=== PATIENT | female | born 1990 | race Two or more races ===

== ENCOUNTER 2024-06-07 04:19 | Emergency (ER) | payer MEDICAID, SELFPAY ==
[2024-06-07 04:19] VITALS: BMI 33.3
[2024-06-07 04:29] VITALS: BP 134/92; PULSE 84; RESP 20; TEMP 36.8; O2SAT 98
[2024-06-07] MEDS: CYCLObenzaPRINE 5 MG TABLET PO (04:58)
[2024-06-07] MEDS: KETOROLAC INJ 60 MG/2 ML VIAL IM (04:59)
--- NOTE | 2024-06-07 05:47 | EDNOTE_ITS ---
ED Back Injury Pain RME/HPI General Chief Complaint: Back Pain/Injury Stated Complaint: LOWER BACK PAIN, S/P GLF X 1 MON. AGO Time Seen by Provider: 06/07/24 04:37 Arrival date/time: 06/07/24 04:19 33F with no significant PMH presents to ED with several days of low back pain. Pain started after slip and fall about 1 month ago. Patient denies dysuria/hematuria, paresthesia, and bowel/bladder incontinence. Limitations: no limitations Related Data Home Medications ?Medication ?Instructions ?Recorded ?Confirmed prenat.vits,randell,[id number] 1 tab PO QDAY 08/15/21 08/23/21 Previous Rx's ?Medication ?Instructions ?Recorded nifedipine 60 mg tablet,extended 60 mg PO QDAY #30 tab s 08/17/21 release 24 hr (Procardia XL) doxycycline hyclate 100 mg capsule 100 mg PO BID #20 c aps 06/14/23 methylprednisolone 4 mg tablets in 4 mg PO QAM #21 tab s 06/14/23 a dose pack (Medrol (Navjot)) Allergies Allergy/AdvReac Type Severity Reaction Status Date / Time No Known Allergies Allergy Unknown Verified 06/07/24 04:22 Review of Systems Review of Systems Systems Reviewed: All systems reviewed, normal except as documented Constitutional Constitutional: Reports system reviewed and no additional complaints, except as documented, Denies fever(s) and Denies headache(s) ENT Ears, Nose, Mouth, and Throat: Denies disequilibrium and Denies headache(s) Cardiovascular Cardiovascular: Reports system reviewed and no additional complaints, except as documented, Denies chest pain and Denies dyspnea Respiratory Respiratory: Reports system reviewed and no additional complaints, except as documented, Denies cough and Denies dyspnea Gastrointestinal Gastrointestinal: Reports system reviewed and no additional complaints, except as documented, Denies abdominal pain, Denies nausea and Denies vomiting Musculoskeletal Musculoskeletal: Reports as per HPI and Reports back pain Neurologic Neurologic: Reports system reviewed and no additional complaints, except as documented, Denies confusion, Denies disequilibrium and Denies headache(s) Psychiatric Psychiatric: Denies confusion Past Medical History Past Medical History CARDIAC: Negative Cardiac Disorders or Congestive Heart Failure RESPIRATORY: Negative Chronic Obstructive Pulmonary Disease (COPD) or Asthma GENITOURINARY: Negative Renal Disease ENDOCRINE: Negative Diabetes Mellitus Type 1 or Diabetes Mellitus Type 2 HEMATOLOGIC: Negative Sickle Cell Disease Social History SMOKING STATUS: Never smoker ED Exam General Limitations: Present no limitations General appearance: Present alert and in no apparent distress Head Head exam: Present atraumatic Eye Eye exam: Present normal appearance, PERRL and EOMI ENT ENT exam: Present normal exam, normal oropharynx and mucous membranes moist Neck Neck exam: Present normal inspection, full ROM and trachea midline Chest Chest inspection: Present normal inspection and symmetric chest wall rise Respiratory Respiratory exam: Present normal lung sounds bilaterally Cardiovascular Cardiovascular exam: Present regular rate, normal rhythm and normal heart sounds Abdominal Exam Abdominal exam: Present soft and normal bowel sounds Extremities Exam Extremities exam: Present normal inspection and full ROM Back Exam Back exam: Present normal inspection and full ROM Neurological Exam Neurological exam: Present alert, oriented X3 and CN II-XII intact Psychiatric Psychiatric exam: Present normal affect and normal mood Skin Skin exam: Present warm, dry, intact and normal color Course Quality Measures none Orders Category Date Time Status CYCLObenzaPRINE [Flexeril] Med 06/07/24 04:38 Discontinued 5 mg PO X1 ONE Ketorolac Inj [Toradol Inj] Med 06/07/24 04:38 Discontinued 60 mg IM X1 ONE Vital Signs Vital signs: Vital Signs Temperature 98.2 F 06/07/24 04:29 Pulse Rate 84 06/07/24 04:29 Respiratory Rate 20 06/07/24 04:29 Blood Pressure 134/92 H 06/07/24 04:29 Pulse Oximetry (%) 98 06/07/24 04:29 Oxygen Delivery Method Room Air 06/07/24 04:29 O2 at 98% on RA and WNLs Back Pain / Injury MDM Narrative MDM Narrative:: 33F with no significant PMH presents to ED with several days of low back pain. Pain started after slip and fall about 1 month ago. Patient denies dysuria/hematuria, paresthesia, and bowel/bladder incontinence. Physical exam reveals no midline back tenderness. ROM is intact, though painful. Gait normal. Patient is afebrile, alert, but appears to be in pain. Meds and career placement services counselor given. Patient data External records reviewed:: [facility] previous records Clinical information provided by:: patient Social determinants that could affect healthcare access:: none Patient has the following chronic illnesses:: none How is presenting disease/condition affected by chronic disease/condition?: no chronic disease Evaluation data The following diagnostics were reviewed and interpreted by me:: other (specify) (none) Lab and/or radiology exams considered but not ordered:: not ordered Interpretation Summary: n/a Medications / Prescriptions Medications or Prescriptions considered but not ordered:: ordered Medication administrations:: Medication Administration History Discontinued Medications Cyclobenzaprine HCl (Cyclobenzaprine 5 Mg Tablet) 5 mg PO X1 ONE Stop: 06/07/24 04:39 Last Admin: 06/07/24 04:58 Dose: 5 mg Documented By: CVL Ketorolac Tromethamine (Ketorolac Inj 60 Mg/2 Ml Vial) 60 mg IM X1 ONE Stop: 06/07/24 04:39 Last Admin: 06/07/24 04:59 Dose: 60 mg Documented By: CVL Comments: pain down to 06/05 pt discharge above Consultations Consultation(s) initiated? (list below): No Diagnosis Differential diagnosis back pain/injury: lumbar radiculopathy, sciatica, strain of lumbar region, renal colic, pyelonephritis, thoracic back pain, AAA, discitis and other (back pain) Most likely diagnosis given after review of the tests above:: back pain Admission Indicated Admission indicated?: not indicated Admission Request Was there a request for admission?: No Disposition Plan Disposition Plan: Discharge Discharge Attestation Discharge Attestation: The patient and all family members were given an opportunity to ask questions and understood the discharge instructions. Discharge instructions specifically effects, indications for sooner follow up or return to the emergency department, and the expected course of current diagnosis. Patient condition: Stable Discharge Plan Plan Patient Disposition: HOME (Self Care) Disposition Comment: Stable Prescriptions/Referrals Prescriptions/Med Rec: No Action nifedipine [Procardia XL] 60 mg tablet extended release 24 hr 60 mg PO QDAY Qty: 30 0RF Vitamin Tablet 1 tab PO QDAY doxycycline hyclate 100 mg capsule 100 mg PO BID Qty: 20 0RF methylprednisolone [Medrol (Navjot)] 4 mg tablets,dose pack 4 mg PO QAM Qty: 21 0RF Rx Instructions: follow dose pack instructions Problem List Clinical Impression: Back pain Patient/Caregiver Discharge Instructions Education Materials: ED Back Pain (Acute or Chronic) Additional Instructions: Please follow-up with PCP within 24-48 hours and return immediately if symptoms worsen. If problem persists, recommend outpatient PT and/or MRI follow-up. In the meantime, rest, use ice/heat, and/or compression. Print Language: Latvian Stand Alone Forms: Patient Portal Info Letter PA/[employer] Supervising Physician PA/[employer] Supervising Physician: Dr. Hawkins
== END 2024-06-07 05:07 | disposition home or self-care (01) ==
LOC: SERX 06:23
PROVIDERS: Emergency Provider Emergency Medicine
DX: M54.50 Low back pain, unspecified (principal)
CPT/HCPCS: 96372; 99283; J1885; A9270

== ENCOUNTER 2025-02-08 17:34 | Emergency (ER) | payer MEDICAID, SELFPAY ==
[2025-02-08 18:25] VITALS: BP 138/85; PULSE 76; RESP 18; TEMP 36.9; O2SAT 98
--- NOTE | 2025-02-08 18:29 | XR_ITS ---
EXAMINATION: PA chest single view TECHNIQUE: Upright PA chest single view Date and time: February 08, 2025, 1908 hours, comparison June 14, 2023 INDICATIONS: Chest pain beginning 2 days ago. FINDINGS: Normal heart size Lungs are clear. Osseous structures are intact IMPRESSION: No active disease
[2025-02-08 19:03] LABS: Collection Type, Urine Voided
[2025-02-08 19:14] LABS: Bilirubin,Urine Negative (Negative); Blood,Urine Negative (Negative); Clarity,Urine Clear (Clear/Hazy); Color,Urine Colorless (Lt Yel-Yel); Culture Indicated,Urine Not Indicated; Glucose, Urine Negative (Negative); Ketones,Urine Negative (Negative); Leukocyte Esterase,Urine Negative (Negative); Nitrite,Urine Negative (Negative); PH,Urine 7.0 (5.0-7.0); Protein,Urine Negative (Neg - Trace); RBC,Urine 1 /hpf (0-3); Specific Gravity,Urine 1.007 (1.001-1.035); Squamous Epithelial Cell,Urine 3 /hpf (0-5); Urobilinogen,Urine Negative mg/dL (0.0-1.0); WBC,Urine 1 /hpf (0-5)
[2025-02-08 19:25] LABS: HCG Qualitative,Urine Negative
[2025-02-08 19:26] LABS: Alanine Aminotransferase 29 U/L (10-49); Albumin, Serum 4.6 gm/dL (3.5-5.0); Albumin/Globulin Ratio 2.1 (1.2-2.2); Alkaline Phosphatase 68 U/L (46-116); Anion Gap 6 (7-16); Aspartate Amino Transferase 22 U/L (0-34); BUN/Creatinine Ratio 11 Ratio (12-20); Bilirubin,Total 0.2 mg/dL (0.3-1.2); Blood Urea Nitrogen 9 mg/dL (9-23); Calcium 9.3 mg/dL (8.3-10.6); Calcium (Corrected) 9.3 mg/dL (8.5-10.1); Carbon Dioxide 30.2 mMol/L (20.0-31.0); Chloride 107 mMol/L (98-107); Creatinine (Component) 0.8 mg/dL (0.6-1.3); Estimated Creatinine Clearance 113.7 mL/min (>60); Globulin 2.2 gm/dL (2.3-3.5); Glucose 106 mg/dL (74-106); Osmolality,Calculated 283 (275-295); Potassium 4.3 mMol/L (3.4-5.1); Sodium 143 mMol/L (136-145); Total Protein 6.8 gm/dL (5.7-8.2); eGFR > 60 See Note
[2025-02-08 19:28] LABS: Basophils # (Auto) 0.1 Thou/mm3 (0.0-0.2); Basophils % (Auto) 1 % (0-2.5); Eosinophils # (Auto) 0.2 Thou/mm3 (0.0-0.5); Eosinophils % (Auto) 2 % (0-10); Hematocrit 37.9 % (36.0-46.0); Hemoglobin 12.5 g/dL (12.0-16.0); Immature Granulocytes Auto 0.05 Thou/mm3 (0.00-0.00); Lymphocytes # (Auto) 2.8 Thou/mm3 (1.0-4.8); Lymphocytes % (Auto) 29 % (10-50); Mean Corpuscular HGB Conc 33.0 g/dl (31.0-37.0); Mean Corpuscular Hemoglobin 29.0 pg (25.0-35.0); Mean Corpuscular Volume 88 fL (80-100); Monocytes # (Auto) 0.9 Thou/mm3 (0.0-0.8); Monocytes % (Auto) 9 % (0-12); Neutrophils # (Auto) 5.6 Thou/mm3 (1.8-7.7); Neutrophils % (Auto) 59 % (37-80); Nucleated Red Blood Cell # 0.00 Thou/mm3 (0.00-0.00); Nucleated Red Blood Cell % 0 /100 WBC (0); Platelet Count 205 Thou/mm3 (140-440); RDW Standard Deviation 41.7 fL (36.4-46.3); Red Blood Count 4.31 Miln/mm3 (4.00-5.20); White Blood Count 9.6 Thou/mm3 (3.6-11.0)
--- NOTE | 2025-02-08 19:58 | PD.EDURI ---
Upper Respiratory Inf. RME/HPI General Chief Complaint: Upper Respiratory Infection Stated Complaint: EXCESSIVE SALIVA Time Seen by Provider: 02/08/25 18:29 Arrival date/time: 02/08/25 17:34 RME / HPI RME / HPI Narrative: 34-year-old female presents to the ER complaining of cough with white productive sputum along with increased saliva and thirst dry for the past 6 days. Denies fever, sore throat, dysphagia, congestion, earache, nausea, vomiting, shortness of breath, chest pain. Related Data Home Medications ?Medication ?Instructions ?Recorded ?Confirmed prenat.vits,randell,[id number] 1 tab PO QDAY 08/15/21 08/23/21 Previous Rx's ?Medication ?Instructions ?Recorded nifedipine 60 mg tablet,extended 60 mg PO QDAY #30 tabs 08/17/21 release 24 hr (Procardia XL) doxycycline hyclate 100 mg capsule 100 mg PO BID #20 caps 06/14/23 methylprednisolone 4 mg tablets in 4 mg PO QAM #21 tabs 06/14/23 a dose pack (Medrol (Navjot)) Allergies Allergy/AdvReac Type Severity Reaction Status Date / Time No Known Allergies Allergy Unknown Verified 02/08/25 17:37 ED Exam Narrative Physical exam: Constitutional: Patient alert and oriented. Well appearing. No acute distress. Not toxic appearing. Head: Normocephalic, atraumatic. Eyes: Periorbital regions bilaterally normal to inspection. Conjunctiva clear bilaterally. Sclera anicteric bilaterally. Pupils equal, round, reactive to light bilaterally. Extraocular movements intact bilaterally. Ears: External ears normal to inspection bilaterally. No mastoid tenderness bilaterally. EAC without edema or exudate bilaterally. TMs without erythema or bulging. Mouth/Throat: Mucous membranes moist. No stridor or muffled voice. Uvula midline. Rise and fall of soft palate normal. No tonsillar edema or exudate. No peritonsillar fullness. No trismus. Handling secretions without difficulty. Airway widely patent. Neck: Supple. Trachea midline. No JVD. No nuchal rigidity. No midline tenderness or step-offs. Normal range of motion. Respiratory: Normal effort. No accessory muscle use or respiratory distress. Lungs clear to auscultation bilaterally without rhonchi, wheezes, or crackles. Cardiovascular: RRR. Normal S1/S2. No murmurs or rubs. Radial pulses intact bilaterally. Abdomen: Soft. Non-distended. Non-tender throughout. No pulsatile mass. No guarding or rebound. Negative Mendez?s sign. Negative McBurney?s point tenderness. Negative Rovsing?s. Back: No midline tenderness or step-offs. No CVA tenderness to palpation bilaterally. Upper Extremities: No gross deformities. Lower Extremities: No gross deformities. No edema or calf tenderness. Neuro: Speech normal. No gross motor or sensory deficits to upper or lower extremities bilaterally. GCS 15. CN II?XII grossly intact. Skin: Warm, dry, normal color. Psych: Normal affect. Cooperative. Normal insight. Course Quality Measures none Orders Category Date Time Status XR chest 1V Stat Exams 02/08/25 18:29 Completed CBC Stat Lab 02/08/25 18:45 Completed CMP [Comprehensive Metabolic Panel] Stat Lab 02/08/25 18:45 Completed HCG Qualitative,Urine Stat Lab 02/08/25 18:53 Completed Urinalysis, C/S if Indicated Stat Lab 02/08/25 18:53 Completed Vital Signs Vital signs: Vital Signs Temperature 98.4 F 02/08/25 18:25 Pulse Rate 76 02/08/25 18:25 Respiratory Rate 18 02/08/25 18:25 Blood Pressure 138/85 H 02/08/25 18:25 Pulse Oximetry (%) 98 02/08/25 18:25 Oxygen Delivery Method Room Air 02/08/25 18:25 Upper Respiratory Infection MDM Narrative MDM Narrative:: This patient has been diagnosed with a viral upper respiratory infection. Labs without severe metabolic or electrolyte abnormality however CMP is notable for a low anion gap of 6 and CO2 within normal limits at 30.2. UA negative. A careful history and physical exam, and laboratory testing as appropriate, show no signs of meningitis, pneumonia, or other serious viral or bacterial infection. I considered antibiotics; however, given viral etiology, it is not indicated. The patient is told that viral illness is a presumptive diagnosis and if improvement is not occurring within several days or if symptoms change or worsen, a re-evaluation needs to be done with the PMD or in the ED to make sure a more serious, as yet undiagnosable, problem is not occurring. Patient data External records reviewed:: [facility] previous records Clinical information provided by:: patient Social determinants that could affect healthcare access:: none Patient has the following chronic illnesses:: None How is presenting disease/condition affected by chronic disease/condition?: no chronic disease Evaluation data The following diagnostics were reviewed and interpreted by me:: lab results and radiology exam(s) Lab and/or radiology exams considered but not ordered:: Additional Labs and radiology considered, but not ordered as they were not clinically indicated at this time. Interpretation Summary: As noted Medications / Prescriptions Medications or Prescriptions considered but not ordered:: I considered prescription management (both outpatient prescriptions AND drug treatment in the ER) and decided that this was necessary and was prescribed as charted. Medication administrations:: As noted Consultations Consultation(s) initiated? (list below): No Diagnosis Upper Respiratory Differential Diagnosis: upper respiratory infection, viral infection, bronchitis and other Most likely diagnosis given after review of the tests above:: Upper respiratory infection Admission Indicated Admission indicated?: not indicated Admission Request Was there a request for admission?: No Disposition Plan Disposition Plan: Discharge Discharge Attestation Discharge Attestation: The patient and all family members were given an opportunity to ask questions and understood the discharge instructions. Discharge instructions specifically effects, indications for sooner follow up or return to the emergency department, and the expected course of current diagnosis. Patient condition: Stable Discharge Plan Plan Patient Disposition: HOME (Self Care) Patient condition on transfer: Stable Prescriptions/Referrals Prescriptions/Med Rec: No Action nifedipine [Procardia XL] 60 mg tablet extended release 24 hr 60 mg PO QDAY Qty: 30 0RF Vitamin Tablet 1 tab PO QDAY doxycycline hyclate 100 mg capsule 100 mg PO BID Qty: 20 0RF methylprednisolone [Medrol (Navjot)] 4 mg tablets,dose pack 4 mg PO QAM Qty: 21 0RF Rx Instructions: follow dose pack instructions Referrals: Johanna Meehan FNP [Primary Care Provider] - In 1 week Problem List Clinical Impression: Acute upper respiratory infection Patient/Caregiver Discharge Instructions Education Materials: ED URI, Viral, No Abx (Adult) Additional Instructions: Follow up with your primary medical doctor within 24 hours. Return to the Emergency Room immediately for any new, worsening, continuing symptoms or any concerns at all. Return to the Emergency Room within 24 hours if you are unable to follow up with your primary medical doctor within 24 hours. Print Language: Faroese Stand Alone Forms: [employer] Award Info., Patient Portal Info Letter ASHWIN/MEDICAL MANAGER Supervising Physician PA/MEDICAL MANAGER Supervising Physician: Dr. Desai
== END 2025-02-08 20:52 | disposition home or self-care (01) ==
PROVIDERS: Physician Assistant; Emergency Provider Emergency Medicine
DX: J06.9 Acute upper respiratory infection, unspecified (principal)
CPT/HCPCS: 36415; 71045; 80053; 81001; 81025; 85025; 99283